=== PATIENT | male | born 1965 | race Caucasian/White ===

== ENCOUNTER 2018-05-30 09:24 | Day surgery (SDC) | payer OTHER ==
[~2018-05-30 09:24] MED LIST: LIDOCAINE 2% (SDV) 5 ML INJ; PROPOFOL 200 MG INJ
[2018-05-30] MEDS ORDERED: PROPOFOL 20 ML (10:17)
== END 2018-05-30 15:19 | disposition home or self-care (01) ==
LOC: GIL 09:24
DX: Z12.11 Encounter for screening for malignant neoplasm of colon (principal); D12.0 Benign neoplasm of cecum; K64.8 Other hemorrhoids
CPT/HCPCS: 45380; 88305